=== PATIENT | female | born 1955 | race Caucasian/White ===

== ENCOUNTER → 2019-05-16 15:22 | Outpatient (CLI) | payer OTHER, SELFPAY ==
--- NOTE | 2019-05-16 | DI.CT.S_ITS ---
PROCEDURE: CT KIDNEY URETER BLADDER (KUB) INDICATIONS: r/o kidney stone TECHNIQUE: Noncontrast 5 mm thick sections acquired from the diaphragms to the symphysis. 5 mm thick coronal and sagittal reformats were then performed. For radiation dose reduction, the following was used: automated exposure control, adjustment of mA and/or kV according to patient size. COMPARISON: [facility], , CHEST 1 VIEW, 08/07/2015, 11:51. [facility], CHEST 1 VIEW, 08/07/2015, 12:20. FINDINGS: Image quality: Excellent. Lung bases: Lung bases are clear. Heart size is normal. Partial visualization of the right breast prosthesis. Urinary system: Both kidneys are normal in size. No kidney stones. No hydronephrosis or perinephric fat stranding. Both ureters appear non-dilated throughout their expected courses. Bladder wall thickness is normal; no calcified bladder stones. Other solid organs: Liver is normal in size. Gallbladder contains a small gallstone. Pancreas is normal in contours. Spleen is normal in size. No adrenal nodules. Peritoneum and bowel: Unenhanced bowel loops demonstrate normal wall thickness and caliber. No free fluid or air. Nodes and vessels: No retroperitoneal or mesenteric adenopathy by size criteria. Aorta and inferior vena cava are normal in caliber. There is moderate atherosclerosis. Abdominal wall: No ventral hernias. Pelvis: No free pelvic fluid. No inguinal hernias or adenopathy. Bones: No suspicious bony lesions. No vertebral body compression fractures. IMPRESSION: 1. No renal stone hydronephrosis. 2. Cholelithiasis. Dictated by: Freddy Bowers M.D. on 05/16/2019 at 16:28 Approved by: Freddy Bowers M.D. on 05/16/2019 at 17:45
== END ==
PROVIDERS: PCP Family Medicine; Visit Provider Family Medicine
DX: K80.20 Calculus of gallbladder without cholecystitis without obstruction (principal); N20.0 Calculus of kidney
CPT/HCPCS: 74176

== ENCOUNTER → 2019-09-13 14:39 | Outpatient (CLI) | payer OTHER, SELFPAY | PROVIDERS: PCP Family Medicine; Visit Provider Physician Assistant Medical | DX: Z12.31 Encounter for screening mammogram for malignant neoplasm of breast (principal); Z53.20 Procedure and treatment not carried out because of patient's decision for unspecified reasons ==

== ENCOUNTER → 2022-04-08 07:30 | Outpatient (CLI) | payer MEDICARE, OTHER, SELFPAY ==
--- NOTE | 2022-04-08 | DI.ECHO.S_ITS ---
[place] +---------+ [facility] +---------+ : : [address] : : : : [id number] : : : : Phone: [phone]+ Echocardiogram Report + + :Name: STEFANY LUNA Study Date: 04/08/2022 Height: 68 in : :[facility] ReadingLocation: Weight: 230 lb : : Gender: Female BSA: 2.2 m2 : :: 1955 Age: 66 yrs BP: 160/89 mmHg: :Reason For Study: Palpitations : :Ordering Physician: CINDY, : :RODOLFO Performed By: Juanito Naranjo : :Referring: RODOLFO WHITE : + + Interpretation Summary 1) Normal left ventricular thickness, size, wall motion, and systolic function (EF 55-60%). 2) Normal right ventricular size and function. 3) No significant valvular abnormalities. 4) No prior Echo available for comparison. Procedure: A two-dimensional transthoracic echocardiogram with color flow and Doppler was performed. The study quality was technically adequate. There is no prior echocardiogram noted for this patient. The patient was in normal sinus rhythm during the exam. Left Ventricle: The left ventricle is normal in size and wall thickness. Left ventricular systolic function is normal. The ejection fraction is estimated to be 55-60%. There are no focal wall motion abnormalities. Diastolic parameters suggest probable normal left ventricular diastolic function and normal filling pressures. Right Ventricle: The right ventricle is normal in size and function. Atria: Both atria are normal in size. The interatrial septum grossly appears intact with no obvious evidence for an atrial septal defect. Mitral Valve: There is mild mitral annular calcification. There is mild mitral regurgitation. Aortic Valve: The aortic valve opens well. The aortic valve is grossly normal. There is no aortic valve stenosis. There is trace aortic regurgitation. Tricuspid Valve: The tricuspid valve is normal in structure and function. There is mild tricuspid regurgitation. The right ventricular systolic pressure is estimated to be at least 29 mmHg based on an estimated right atrial pressure of 3 mm Hg. Pulmonic Valve: The pulmonic valve is not well visualized. There is no pulmonic valvular regurgitation. Great Vessels: The aortic root is normal size. The dimensions of the ascending aorta are normal. The IVC is of normal diameter and collapses greater than 50% with a sniff. This suggests a low right atrial pressure of 3 mm Hg. Pericardium/ Pleura There is no pericardial effusion. There is no pleural effusion. MMode/2D Measurements & Calculations LVIDd: 5.1 cm LVOT diam: 2.2 cm LVIDs: 3.7 cm Ao root diam: 3.1 cm FS: 27.2 % asc Aorta Diam: 2.9 cm IVSd: 0.78 cm LVPWd: 0.93 cm LV harrington. diameter/BSA (cm/m^2): 2.3 LV sys. diameter/BSA (cm/m^2): 1.7 LA A2 area: 16.9 cm2 RA long axis: 4.7 cm LA A4 area: 19.4 cm2 RA area: 14.6 cm2 LA length (vol): 5.1 cm RA vol: 38.2 ml LA vol: 54.8 ml RA : 17.6 ml/m2 LA vol index: 25.3 ml/m2 TAPSE: 2.5 cm Doppler Measurements & Calculations Ao V2 max: 130.3 cm/sec LVOT Max Santino: 91.9 cm/sec Ao V2 mean: 98.8 cm/sec LV V1 max P.4 mmHg Ao max P.8 mmHg LV V1 VTI: 20.2 cm Ao mean P.3 mmHg JOSE(I,D): 2.8 cm2 Ao V2 VTI: 28.2 cm JOSE(V,D): 2.7 cm2 sev ratio: 0.71 JOSE indexed to BSA (cm^2/m^2): 1.3 MV E max santino: 88.2 cm/sec TR max santino: 253.1 cm/sec MV A max santino: 85.3 cm/sec TR max P.6 mmHg MV E/A: 1.0 Med Peak E' Santino: 6.9 cm/sec E/E' med: 12.9 Lat Peak E' Santino: 7.8 cm/sec E/E' lat: 11.4 E/e' average: 12.1 MV dec time: 0.21 sec SV(LVOT): 78.3 ml Reading Physician:01:47 PM
== END ==
PROVIDERS: PCP Physician Assistant Medical; Referring Provider Physician Assistant Medical; Visit Provider Physician Assistant Medical
DX: I08.1 Rheumatic disorders of both mitral and tricuspid valves (principal); R00.2 Palpitations
CPT/HCPCS: 93306

== ENCOUNTER 2023-12-28 06:44 | Day surgery (SDC) | payer MEDICARE, OTHER, SELFPAY ==
--- NOTE | 2023-12-28 | PATH_ITS ---
[facility] Accession Number: [id number] No. of containers..02 Tissue . 01 Material submitted: . PART A: gastrointestinal site - ANTRUM PART B: rectum - RECTAL POLYP . 01 Diagnosis: A. STOMACH, ANTRUM, BIOPSY: Gastric mucosa with mild chronic inflammation. No Helicobacter organisms identified. No intestinal metaplasia, dysplasia, or malignancy identified. . B. RECTUM, POLYP, BIOPSY: Tubular adenoma. MRV 01/03/2024 1656 Local . 01 Electronically signed: . Hermann Guzman MD, Pathologist NPI- [id number] . 01 Gross description: . Part A: ANTRUM: Received in formalin are 3 fragment(s) of ramos, soft tissue measuring 0.2 x 0.2 x 0.2 cm to 0.4 x 0.1 x 0.1 cm submitted entirely in 1 cassette(s) Part B: RECTAL POLYP: Received in formalin is 1 fragment of ramos soft tissue measuring 0.6 x 0.6 x 0.8 cm. Specimen is sectioned and submitted in its entirety in 1 cassette. /ANDREW 12/29/20232030 Local . 01 Microscopic: . A. An immunohistochemical stain was performed to evaluate for Helicobacter organisms and is negative. The control stain showed appropriate reactivity. . * This test was developed and its performance characteristics determined by [employer]. It has not been cleared or approved by the U.S. Food and Drug Administration. The FDA has determined that such clearance or approval is not necessary. This test is used for clinical purposes. It should not be regarded as investigational or for research. . 01 Pathologist provided ICD-10: K29.50, D12.8 . 01 CPT . 683830, 679514, W02331 Specimen Comment: A courtesy copy of this report has been sent to [phone] Performed at: 01 [facility] [address], [place], [place] [id number] MD Hermann Guzman MD Phone: [phone]
[2023-12-28 07:15] VITALS: BP 153/93; PULSE 87; RESP 17; TEMP 36.6; O2SAT 98
[2023-12-28] MEDS: LACTATED RINGERS 1,000 ML 42 ML IV (07:26)
--- NOTE | 2023-12-28 07:43 | PM.PREOP ---
Pre-operative Note COVID-19 COVID-19 status: Not tested Interval Note History & Physical reviewed/Exam performed by Physician: Yes Changes to H&P: No ASA Class (for procedural sedation): III
[2023-12-28 08:27] VITALS: BP 142/74; PULSE 74; RESP 14; TEMP 36.6; O2SAT 96
--- NOTE | 2023-12-28 08:28 | PM.OP.EC ---
Operative Date/Time/Diagnoses Date of procedure: 12/28/23 Time of procedure: 08:28 Pre-op diagnosis: Epigastric pain and colon cancer screening Post-op diagnosis: same Procedure & Clinicians Study performed: Esophagogastroduodenoscopy and colonoscopy Same procedure as scheduled: Yes Surgeon: Jeremy Stevens Procedure Notes Procedure in detail: Surgeon: Jeremy Stevens MD Anesthesia: Lauren Hurley CRNA Procedure in detail: A timeout was performed. A bite blocked was placed and monitors were attached to the patient. The patient was positioned in the left lateral decubitus position. Sedation was administered. Once the patient was sedated the endoscope was inserted through the bite block and passed through the esophagus and stomach and into the duodenum. No abnormalities were seen in the duodenal. We then withdrew the scope into the stomach. Mild antritis was noted and random biopsies were taken from the antrum with cold forceps. The endoscope was retroflexed and a small hiatal hernia was noted. The endoscope was straightned and withdrawn into the esophagus. No other abnormalities were seen. EGD findings: Mild antritis and a small hiatal hernia Next we repositioned the patient for a colonoscopy. A digital rectal exam was performed and was normal. The colonoscope was inserted and advanced to the cecum. The appendiceal orifice was identified and photographed. The scope was slowly withdrawn over greater than 6 minutes. There was a 1 cm polyp near the rectosigmoid junction. It was removed with a hot snare. The scope was retroflexed in the rectum and mild internal hemorrhoids were noted. Colonoscopy findings: 1 cm polyp in the rectosigmoid junction and mild internal hemorrhoids Total procedural EBL: 3 mL Scope withdrawal time: 12 minutes Sedation minutes: 30 minutes Post-procedure Disposition: PACU
[2023-12-28 08:32] VITALS: BP 140/96; PULSE 76; RESP 15; O2SAT 98
[2023-12-28 08:37] VITALS: BP 153/78; PULSE 75; RESP 12; O2SAT 99
[2023-12-28 08:43] VITALS: BP 131/78; PULSE 67; RESP 12; TEMP 36.7; O2SAT 98
== END 2023-12-28 09:00 | disposition home or self-care (01) ==
PROVIDERS: PCP Physician Assistant Medical; Referring Provider Surgery; Visit Provider Surgery
PROC: 0DJ08ZZ Inspection of Upper Intestinal Tract, Via Natural or Artificial Opening Endoscopic (ICD-10-PCS; CPT 43235; principal; 2023-12-28 07:45)
PROC: 0DJD8ZZ Inspection of Lower Intestinal Tract, Via Natural or Artificial Opening Endoscopic (ICD-10-PCS; CPT 45378; 2023-12-28 07:45)
DX: Z12.11 Encounter for screening for malignant neoplasm of colon (principal); R10.13 Epigastric pain; K29.50 Unspecified chronic gastritis without bleeding; K44.9 Diaphragmatic hernia without obstruction or gangrene; K64.8 Other hemorrhoids; D12.8 Benign neoplasm of rectum
CPT/HCPCS: 45385; 43239

== ENCOUNTER 2024-04-02 11:32 | Day surgery (SDC) | payer MEDICARE, OTHER, SELFPAY ==
[2024-03-27 15:07] VITALS: BMI 36.1
--- NOTE | 2024-04-02 | PATH_ITS ---
[facility] Accession Number: [id number] No. of containers..01 Tissue . 01 Material submitted: . gallbladder - GALLBLADDER . 01 Diagnosis: GALLBLADDER, CHOLECYSTECTOMY: Mild chronic cholecystitis. No evidence of neoplasm. [facility] 04/04/2024 1117 Local . 01 Electronically signed: . Parmjit Dolan MD, PhD, Pathologist NPI- [id number] . 01 Gross description: . Received in formalin with two patient identifiers and gallbladder, is an intact gallbladder, 8.4 x 3.5 x 2.4 cm, with an unremarkable external surface. The cystic duct margin is inked blue, and no pericystic lymph node is identified. The lumen contains dark green viscous bile with no calculi identified in the lumen or the container. The mucosa is green and velvety with no discoloration, polyps, or lesions identified. The martinez average 0.2 cm thick. Veneer Taping Machine Operator sections to include the cystic duct margin and full thickness sections are submitted in A1. ([id number]) /MRV 04/03/2024 1748 Local . 01 Pathologist provided ICD-10: K81.1 . 01 CPT . 583538 Specimen Comment: A courtesy copy of this report has been sent to [phone] Performed at: [address] [facility] [address], [place], [place] [id number] MD Hermann Guzman MD Phone: [phone]
[2024-04-02] MEDS: LACTATED RINGERS 1,000 ML 42 ML IV (11:55)
[2024-04-02 12:03] VITALS: BP 176/83; PULSE 92; RESP 16; TEMP 36.4; O2SAT 98; BMI 35.2
--- NOTE | 2024-04-02 12:08 | PM.HP.1 ---
History of Present Illness History of Present Illness Date Patient Seen: 04/02/24 Time Patient Seen: 12:08 Chief complaint: Laparoscopic Cholecystectomy Narrative: Jory is a 68-year-old woman who has symptomatic cholelithiasis. See the office note from December for details. [facility] Medical History (Updated 03/27/24 @ 15:23 by Kelley Epperson RN) History of COVID-19 (04/12/23) Hx of shortness of breath History of chest pain Statin intolerance PAF (paroxysmal atrial fibrillation) Hemorrhoids IBS (irritable bowel syndrome) Anemia GERD (gastroesophageal reflux disease) A-fib Hyperlipemia Hypothyroidism Hypertension Skin cancer Surgical History (Updated 03/27/24 @ 15:19 by Kelley Epperson RN) History of colonoscopy (12/28/23) History of esophagogastroduodenoscopy (EGD) (12/28/23) History of section Hx of foot surgery Hx of shoulder surgery Hx of left knee surgery Hx of hysterectomy Hx of appendectomy Hx of tonsillectomy Family History (Updated 12/13/23 @ 14:19 by Burt Wood RN) Mother Hypertension Cancer Stroke Father Hypertension Stroke Grandmother Stroke Aunt Heart disease Social History (Updated 06/11/19 @ 15:09 by Juliet Todd RN) marital status: household members: spouse Smoking Status: Never smoker alcohol intake: current substance use type: does not use Meds Home Medications and Allergies Home Medications Medication Instructions Recorded Confirmed Type ezetimibe 10 mg tablet (Zetia) 10 mg PO DAILY 06/11/19 04/02/24 History aspirin 81 mg tablet,delayed 81 mg PO DAILY 12/13/23 04/02/24 History release levothyroxine 75 mcg capsule 75 mcg PO DAILY 12/13/23 04/02/24 History losartan 100 1 tab PO DAILY 12/13/23 04/02/24 History mg-hydrochlorothiazide 25 mg tablet metoprolol succinate 25 mg 25 mg PO DAILY 12/13/23 04/02/24 History tablet,extended release 24 hr Allergies Allergy/AdvReac Type Severity Reaction Status Date / Time simvastatin [SIMVASTATIN] Allergy Unknown VIOLENT Verified 04/02/24 11:58 NIGHTMARES Sulfa (Sulfonamide Allergy Unknown Verified 04/02/24 11:58 Antibiotics) [SULFA (SULFONAMIDE ANTIBIOTICS)] doxycycline Allergy Verified 04/02/24 11:58 apixaban [From Eliquis] AdvReac Nightmare Verified 04/02/24 11:59 DARVON AdvReac Unknown VAGINAL Uncoded 04/02/24 11:58 BLEEDING Exam Const General: No acute distress Resp Effort & Inspection: normal respiratory effort Assessment & Plan Assessment and plan (1) Cholelithiasis: Qualifiers: Cholelithiasis location: gallbladder Cholecystitis presence: without cholecystitis Biliary obstruction: without biliary obstruction Qualified Code(s): K80.20 - Calculus of gallbladder without cholecystitis without obstruction Status: Acute Plan We reviewed the risks and benefits of laparoscopic cholecystectomy for gallstones and she would like to proceed.
[2024-04-02] MEDS: ACETAMINOPHEN 325 MG TABLET 975 MG PO (12:29)
[2024-04-02] MEDS: CEFAZOLIN 2 GM/100 ML PREMIX 100 ML IV (12:51)
--- NOTE | 2024-04-02 13:12 | SUR.OPER ---
Supine on padded OR bed, head on pillow, safety belt at thigh, left arm padded and tucked at side. Right arm secured on padded arm board <90 degrees abduction. Legs uncrossed. Padded footboard in place. Tape over blanket to secure lower legs.
[2024-04-02] MEDS: BUPIVACAINE 0.5% W/ EPI (PF) 10 ML VIAL 30 ML INJ (13:18)
--- NOTE | 2024-04-02 13:27 | PM.OP.1 ---
Operative Date/Time/Diagnoses Date of procedure: 04/02/24 Time of procedure: 13:27 Pre-op diagnosis: Symptomatic cholelithiasis Post-op diagnosis: same Procedure & Clinicians Procedure: Laparoscopic cholecystectomy Same procedure as scheduled: Yes Surgeon: Jeremy Stevens Air Traffic Control Manager: Jaspal Payan Anesthesia Type: General Operative Notes Procedure in detail: The patient was given preoperative antibiotics. The patient was brought to the operating room and placed on the table in the supine position. General endotracheal anesthesia was induced. The abdomen was prepped and draped. A time-out was performed. We made a 1 cm infraumbilical incision. We dissected down to the base of the umbilical stalk using cautery. We grasped the umbilical stalk with a Ed clamp to elevate the abdominal wall. We scored the fascia in the midline with cautery. We pierced the peritoneum with a Peon clamp. The Stephen port was placed and the abdomen was insufflated to 15 mmHg. A 5 mm 30 degree laparoscopic was inserted. There was no evidence of any injury from the entry. Next, we placed 5 mm ports in the subxiphoid position and right upper quadrant at the midclavicular line and anterior axillary line. The patient was then positioned in reverse Trendelenburg and the table was tilted to the left. There was 1 thin adhesive band between the right liver and diaphragm which was taken down with the hook cautery under direct vision. The gallbladder was grasped at the dome and retracted cephalad. There were few adhesions around the infundibulum to the liver capsule that were taken down under direct vision with cautery. We then dissected the cystic structures with a combination of hook cautery and blunt dissection. We obtained a critical view. We placed clips on the cystic duct and artery and divided the cystic duct and artery sharply between the clips. The gallbladder was then dissected off the liver and placed in a specimen retrieval bag. We irrigated the right upper quadrant and all the aspirate returned clear. We then removed the 5 mm ports under direct vision we removed the Stephen port. We then injected some local into the fascia and closed the fascia with 2 interrupted 0 Vicryl sutures. The skin incisions were closed with 4-0 Monocryl and Steri-Strips were applied. Band-Aids were applied over the Steri-Strips. EBL: 10 mL Specimen: Gallbladder and contents Jaspal GILL provided assistance with exposure, retraction and closure of incisions. Post-operative Condition: stable Disposition: PACU
[2024-04-02 13:40] VITALS: BP 143/72; PULSE 76; RESP 12; TEMP 36.6; O2SAT 95
[2024-04-02 13:47] VITALS: BP 151/73; PULSE 77; RESP 12; TEMP 36.6; O2SAT 96
[2024-04-02 13:53] VITALS: BP 128/61; PULSE 77; RESP 13; TEMP 36.3; O2SAT 97
[2024-04-02] MEDS: ONDANSETRON 4 MG/2 ML INJ IV (13:56)
[2024-04-02] MEDS: OXYCODONE IR 5 MG TABLET PO ×2 (14:17→15:18)
[2024-04-02 14:24] VITALS: BP 150/79; PULSE 77; RESP 16; TEMP 36.3; O2SAT 99
== END 2024-04-02 15:26 | disposition home or self-care (01) ==
PROVIDERS: PCP Physician Assistant Medical; Referring Provider Surgery; Visit Provider Surgery
PROC: 0FT44ZZ Resection of Gallbladder, Percutaneous Endoscopic Approach (ICD-10-PCS; CPT 47562; principal; 2024-04-02 13:30)
DX: K81.1 Chronic cholecystitis (principal); K66.0 Peritoneal adhesions (postprocedural) (postinfection)
CPT/HCPCS: 47562; J0690; J1100; J2405; J2704; J3010; J3490

== ENCOUNTER → 2024-12-27 07:27 | Outpatient (CLI) | payer MEDICARE, OTHER, SELFPAY ==
--- NOTE | 2024-12-27 07:29 | DI.NM.S_ITS ---
PROCEDURE: NM GASTRIC EMPTYING STUDY RADIOPHARMACEUTICAL: 1 mCi Tc-99m sulfur colloid in an egg sandwich. INDICATIONS: NAUSEA TECHNIQUE: A Tc-99m labeled sulfur colloid labeled egg sandwich or oatmeal was served to the patient. Anterior and posterior planar images of the abdomen were obtained at 0 minutes and 30 minutes, then at hourly intervals up to 4 hours. The patient was upright and ambulating during the interval. COMPARISON: None. FINDINGS: The stomach has normal size, morphology, and position. There is normal emptying of solid gastric contents from the stomach by visual inspection. No gastroesophageal reflux is visualized. The percentage of tracer retained at specific time points are as follows: Time point Percent gastric retention Normal range 30 minutes 82 70% or more 1 hour 57 30% to 90% 2 hours 8 60% or less 3 hours 1 30% or less IMPRESSION: Normal gastric emptying study. Dictated by: Silver Arnold M.D. on 12/27/2024 at 12:28 Approved by: Silver Arnold M.D. on 12/27/2024 at 12:29
== END ==
LOC: NUCM 07:28
PROVIDERS: PCP Physician Assistant Medical; Referring Provider Physician Assistant Medical; Visit Provider Physician Assistant Medical
DX: R11.0 Nausea (principal)
CPT/HCPCS: 78264; A9541